=== PATIENT | female | born 1945 | race Caucasian/White ===

== ENCOUNTER 2017-12-26 12:00 | Emergency (ER) | payer MEDICARE, MEDICAID ==
[2017-12-26 12:42] LABS: PTT 26.1 SEC (22.9-36.1)
[2017-12-26 12:47] LABS: Prothrombin Time 13.6 SEC (12.0-14.7)
[2017-12-26 12:58] LABS: #Eosinphils 0.1 thou/uL (0.0-0.7); #Lymphocytes 0.4 thou/uL (1.20-3.40); #Monocytes 0.2 thou/uL (0.11-0.59); #Neutrophils 1.6 thou/uL (1.40-6.50); %Basophils 0.2 % (0.0-1.0); %Monocytes 9.9 % (0.0-10.0); %Neutrophils 70.9 % (42.0-75.0); Hemoglobin 12.3 g/dL (12.0-16.0); Mean Corpuscular HGB CONC 31.8 g/dL (32.0-36.0); Mean Corpuscular Volume 84.9 fl (81.0-99.0); PLT Morphology Comment Appears Decreased; Platelet Count 105 thou/uL (130-400); RBC Distribution Width 12.8 % (11.5-14.5); RBC Morphology Normal; Red Blood Cell (RBC) Count 4.54 mill/uL (4.20-5.40); White Blood Cell (WBC) Count 2.3 thou/uL (4.8-10.8)
[2017-12-26 13:04] LABS: ALT (SGPT) 12 U/L (8-55); AST (SGOT) 12 U/L (5-34); Albumin 4.4 g/dL (3.4-4.8); Alkaline Phosphatase 142 U/L (40-150); Anion Gap 12 mmol/L (10-20); BUN (Urea Nitrogen) 17 mg/dL (9.8-20.1); Bilirubin, Total 1.1 mg/dL (0.2-1.2); CK (CPK) 81 U/L (29-168); Calc. Creatinine Clearance 0 mL/min (70-130); Carbon Dioxide 27 mmol/L (23-31); Chloride 103 mmol/L (98-107); Estimated GFR-MDRD 47; Globulin 2.4 g/dL (2.4-3.5); Glucose 109 mg/dL (80-115); Potassium 3.4 mmol/L (3.5-5.1); Protein, Total 6.8 g/dL (6.0-8.3); Sodium 139 mmol/L (136-145)
[2017-12-26 13:05] LABS: CKMB 1.3 ng/mL (0-6.6); Troponin I Less than 0.010 ng/mL (< 0.028)
--- NOTE | 2017-12-26 13:07 | CT ---
NONCONTRAST CT HEAD: Date: 12/26/17 HISTORY: Weakness and tremors since Sunday. 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 COMPARISON: 10/19/13. FINDINGS: There are scattered areas of decreased attenuation seen in the periventricular white matter, which ar e nonspecific but likely reflective of mild chronic small vessel ischemic changes, greater in the rig ht cerebral hemisphere. These findings are stable compared to the prior exam. There is no evidence of an acute cortical infarction or hemorrhage. Area of encephalomalacia in the posterior right occipita l lobe is again present. No mass effect or midline shift is present. The ventricular system is normal in size, shape, and position. Visualized paranasal sinuses and mastoid air cells are clear. Cerebell ar tonsils remain low lying and prior MRI of the brain demonstrated evidence of Chiari I malformation . IMPRESSION: 1. No acute intracranial abnormality is demonstrated. 2. Stable encephalomalacia right occipital lobe. 3. Mild chronic small vessel ischemic changes. 4. Cerebellar tonsils remain low lying. Chiari I malformation was noted on prior MRI of the brain in 2012. POS: [facility]
--- NOTE | 2017-12-26 13:16 | RAD ---
SINGLE VIEW CHEST: Date: 12/26/17 COMPARISON: 09/12/16. HISTORY: Weakness and tremors since Sunday. Altered mental status. FINDINGS: Single view of the chest shows an enlarged but stable cardiomediastinal silhouette. Atherosclerotic c alcifications are seen in the aorta. Increased interstitial lung markings are present. There is no ev idence of consolidation, mass, or pleural effusion. IMPRESSION: 1. No evidence of acute cardiopulmonary disease. 2. Cardiomegaly. POS: [facility]
[2017-12-26 13:17] LABS: Bilirubin Negative (Negative); Blood, Urine Negative (Negative); Clarity CLEAR (Clear); Glucose, Urine (Dipstick) Negative (Negative); Leukocyte Negative (Negative); Nitrite Negative (Negative); Protein, Urine (Dipstick) Negative (Neg-Trace); Urobilinogen 0.2 mg/dL (0.2-1.0)
== END 2017-12-26 15:32 | disposition home or self-care (01) ==
LOC: ERS 12:00
DX: R25.1 Tremor, unspecified (principal); R53.1 Weakness; Z86.73 Personal history of transient ischemic attack (TIA), and cerebral infarction without residual deficits; I10 Essential (primary) hypertension; Z87.891 Personal history of nicotine dependence
CPT/HCPCS: 70450; 71045; 80053; 81003; 82550; 82553; 83605; 83880; 84443; 84484; 85025; 85610; 85730; 93005

== ENCOUNTER 2018-09-22 19:03 | Emergency (ER) | payer MEDICARE, MEDICAID | END 2018-09-22 20:28 | disposition home or self-care (01) | LOC: ERS 19:03 | DX: R25.1 Tremor, unspecified (principal); J44.9 Chronic obstructive pulmonary disease, unspecified; I10 Essential (primary) hypertension; Z87.891 Personal history of nicotine dependence; Z86.73 Personal history of transient ischemic attack (TIA), and cerebral infarction without residual deficits | CPT/HCPCS: 99283 ==

== ENCOUNTER 2018-10-04 14:47 | Emergency (ER) | payer MEDICARE, MEDICAID | END 2018-10-04 16:04 | disposition home or self-care (01) | LOC: ERS 14:47 | DX: L21.9 Seborrheic dermatitis, unspecified (principal); J44.9 Chronic obstructive pulmonary disease, unspecified; I10 Essential (primary) hypertension; Z87.891 Personal history of nicotine dependence | CPT/HCPCS: 99283 ==

== ENCOUNTER 2018-12-26 14:36 | Emergency (ER) | payer MEDICARE, MEDICAID | END 2018-12-26 15:42 | disposition home or self-care (01) | LOC: ERS 14:36 | DX: R21 Rash and other nonspecific skin eruption (principal); J44.9 Chronic obstructive pulmonary disease, unspecified; I10 Essential (primary) hypertension; Z86.73 Personal history of transient ischemic attack (TIA), and cerebral infarction without residual deficits; Z87.891 Personal history of nicotine dependence | CPT/HCPCS: 99283 ==

== ENCOUNTER 2019-10-26 06:06 | Emergency (ER) | payer MEDICARE, MEDICAID ==
[2019-10-26 06:47] LABS: #Eosinphils 0.1 thou/uL (0.0-0.7); #Lymphocytes 0.4 thou/uL (1.20-3.40); #Monocytes 0.3 thou/uL (0.11-0.59); #Neutrophils 2.4 thou/uL (1.40-6.50); %Basophils 0.5 % (0.0-1.0); %Eosinophils 2.5 % (0.0-10.0); %Monocytes 9.3 % (0.0-10.0); %Neutrophils 76.7 % (42.0-75.0); Hemoglobin 11.2 g/dL (12.0-16.0); Mean Corpuscular HGB CONC 33.7 g/dL (32.0-36.0); Mean Corpuscular Hemoglobin 27.9 pg (27.0-31.0); Mean Corpuscular Volume 82.6 fL (78.0-98.0); Mean Platelet Volume 9.8 fL (7.4-10.4); Platelet Count 76 thou/uL (130-400); Red Blood Cell (RBC) Count 4.01 mill/uL (4.20-5.40); White Blood Cell (WBC) Count 3.1 thou/uL (4.8-10.8)
[2019-10-26 07:01] LABS: ALT (SGPT) 8 U/L (8-55); AST (SGOT) 9 U/L (5-34); Albumin 3.7 g/dL (3.4-4.8); Alkaline Phosphatase 121 U/L (40-110); Anion Gap 12 mmol/L (10-20); BUN (Urea Nitrogen) 12 mg/dL (9.8-20.1); Bilirubin, Total 1.2 mg/dL (0.2-1.2); Calc. Creatinine Clearance 0 mL/min (70-130); Calcium 8.3 mg/dL (7.8-10.44); Carbon Dioxide 25 mmol/L (23-31); Chloride 108 mmol/L (98-107); Estimated GFR-MDRD 63; Globulin 2.3 g/dL (2.4-3.5); Glucose 126 mg/dL (83-110); Potassium 3.1 mmol/L (3.5-5.1); Sodium 142 mmol/L (136-145)
--- NOTE | 2019-10-26 09:19 | RAD ---
PORTABLE CHEST: HISTORY: Chest pain with deep breaths. COMPARISON: 05/08/2019 FINDINGS: The heart size is enlarged. There are atherosclerotic changes of the aorta. There are chronic lung ch anges seen. No focal infiltrates or signs of failure. IMPRESSION: Cardiomegaly with chronic appearing lung change. POS: [facility]
== END 2019-10-26 08:49 | disposition home or self-care (01) ==
LOC: ERS 06:06
DX: R07.89 Other chest pain (principal); E87.6 Hypokalemia; I10 Essential (primary) hypertension; J44.9 Chronic obstructive pulmonary disease, unspecified; Z87.891 Personal history of nicotine dependence; Z85.038 Personal history of other malignant neoplasm of large intestine; Z79.82 Long term (current) use of aspirin; Z79.899 Other long term (current) drug therapy; Z79.51 Long term (current) use of inhaled steroids
CPT/HCPCS: 36415; 71045; 80053; 83605; 84484; 85025; 93005

== ENCOUNTER 2020-02-17 06:36 | Outpatient (CLI) | payer MEDICARE, MEDICAID, OTHER ==
[2020-02-17 12:58] LABS: #Eosinphils 0.1 thou/uL (0.0-0.7); #Lymphocytes 0.5 thou/uL (1.20-3.40); #Monocytes 0.3 thou/uL (0.11-0.59); #Neutrophils 3.3 thou/uL (1.40-6.50); %Basophils 0.5 % (0.0-1.0); %Eosinophils 1.6 % (0.0-10.0); %Lymphocytes 11.3 % (21.0-51.0); %Monocytes 7.7 % (0.0-10.0); %Neutrophils 78.9 % (42.0-75.0); Hemoglobin 12.1 g/dL (12.0-16.0); Mean Corpuscular HGB CONC 32.8 g/dL (32.0-36.0); Mean Corpuscular Hemoglobin 27.3 pg (27.0-31.0); Mean Corpuscular Volume 83.4 fL (78.0-98.0); Mean Platelet Volume 9.4 fL (7.4-10.4); Platelet Count 107 thou/uL (130-400); RBC Distribution Width 15.3 % (11.5-14.5); Red Blood Cell (RBC) Count 4.42 mill/uL (4.20-5.40); White Blood Cell (WBC) Count 4.2 thou/uL (4.8-10.8)
[2020-02-17 13:17] LABS: Anion Gap 13 mmol/L (10-20); BUN (Urea Nitrogen) 35 mg/dL (9.8-20.1); Calc. Creatinine Clearance 0 mL/min (70-130); Calcium 8.9 mg/dL (7.8-10.44); Carbon Dioxide 21 mmol/L (23-31); Chloride 107 mmol/L (98-107); Estimated GFR-MDRD 35; Glucose 105 mg/dL (83-110); Potassium 4.5 mmol/L (3.5-5.1); Sodium 136 mmol/L (136-145)
--- NOTE | 2020-02-17 14:20 | RAD ---
PA AND LATERAL CHEST: Date: 02/17/2020 HISTORY: Preop. COMPARISON: 12/14/2012 study. FINDINGS: Heart size appears slightly enlarged with atherosclerotic changes of aorta. Lungs are clear of infilt rates. Compression changes of one of the mid thoracic vertebral bodies is present, age-indeterminate. IMPRESSION: Mild cardiomegaly. No active intrathoracic disease. POS: [facility]
[2020-02-17 22:21] LABS: SARS-CoV-2 MS2 Positive; SARS-CoV-2 N Gene Negative; SARS-CoV-2 S Gene Negative; SARS-CoV-2 orf1ab Negative
== END 2020-02-17 06:37 | disposition home or self-care (01) ==
LOC: LABBT 06:36
PROVIDERS: ATTEND Specialist
DX: Z01.818 Encounter for other preprocedural examination (principal); Z11.59 Encounter for screening for other viral diseases; K43.2 Incisional hernia without obstruction or gangrene; J44.9 Chronic obstructive pulmonary disease, unspecified; Z85.038 Personal history of other malignant neoplasm of large intestine
CPT/HCPCS: 71046; 80048; 85025; U0003; 87635

== ENCOUNTER 2020-02-20 09:40 | Day surgery (SDC) | payer MEDICARE, MEDICAID ==
[2020-02-17 10:31] VITALS: BMI 31.1
[2020-02-20] MEDS ORDERED: Ketorolac Tromethamine 30 MG/ML VIAL ONE (10:27)
[2020-02-20] MEDS ORDERED: Esmolol 100 MG/10 ML VIAL ONE (11:58)
[2020-02-20] MEDS ORDERED: Calcium Chloride 1 GM/10 ML Abboject SYRINGE ONE (11:58)
[2020-02-20] MEDS ORDERED: Rocuronium Bromide 10 MG/ML (10ML VIAL) ONE (11:58)
[2020-02-20] MEDS ORDERED: Ondansetron PF 4 MG/2 ML Vial ONE ×2 (11:58→15:25)
[2020-02-20] MEDS ORDERED: Lidocaine 1% PF 5 ML VIAL ONE (11:58)
[2020-02-20] MEDS ORDERED: PHENYLEPHRINE-NS 100 MCG/ML 10 ML SYRINGE ONE (11:58)
[2020-02-20] MEDS ORDERED: Dexamethasone 20 MG/5 ML VIAL ONE (11:58)
[2020-02-20] MEDS ORDERED: Acetaminophen 500 MG TAB ONE (12:14)
[2020-02-20] MEDS ORDERED: Gabapentin 300 MG CAP ONE (12:14)
[2020-02-20] MEDS ORDERED: Bupivacaine 0.25% HCL 30 ML VIAL ONE (12:19)
[2020-02-20] MEDS ORDERED: Lidocaine 1% w/Epinephrine 1:100K 20 ML VIAL ONE (12:19)
[2020-02-20] MEDS ORDERED: Phenylephrine 10 MG/ML VIAL ONE (12:21)
[2020-02-20] MEDS ORDERED: Fentanyl 100 MCG/2 ML VIAL ONE ×2 (12:21→15:20)
--- NOTE | 2020-02-20 12:30 | ULT ---
BILATERAL CAROTID DUPLEX ULTRASOUND: DATE: 02/20/2020 HISTORY: Preoperative evaluation. Patient has had a previous right carotid endarterectomy. TECHNIQUE: Martino scale ultrasound with color flow and spectral Doppler imaging of the extracranial carotid artery systems performed bilaterally. FINDINGS: There is plaque formation on both sides. The peak systolic velocity in the right ICA measures 84 cm/second with an end-diastolic velocity of 2 2 cm/second and a systolic ratio of 0.94. The peak systolic velocity in the left ICA measures 104 cm/second with an end-diastolic velocity of 1 7 cm/second and a systolic ratio of 1.2. Flow in both vertebral arteries remains antegrade. IMPRESSION: No evidence of hemodynamically significant stenosis. POS: [facility]
--- NOTE | 2020-02-20 12:39 | HP ---
ADDENDUM: Addendum to that dictated 11/13/2019. Dictation #[id number]. Amy Melendez, a 74-year-old female, seen on 11/13/2019, determined to have an incisional hernia, having undergone a laparoscopic incisional hernia repair on April 28, 2015, by me using mesh. On 10/26/2019, the patient presented to the ER with these complaints. She ambulates with the assistance of a walker. She is accompanied by her daughter previous visit. Today, she is alone. The patient has incisional hernia present in upper midline incision between the umbilicus and xiphoid and a small incisional hernia around the umbilicus. Plan is to repair these using mesh as an outpatient. The patient has seen Dr. Pb Morrison and had an echocardiogram, EKG, and cardiac catheterization. The patient in the interim has had determination of coronary artery disease treated medically, and Dr. Pb Morrison reports the patient is safe to proceed with elective robot/laparoscopic mesh repair of recurrent incisional hernia and umbilical area incisional hernia as an outpatient without further intervention. The patient denies coronary symptomatology. PAST MEDICAL HISTORY: As outlined in [facility] dictation #[id number], dictated on 11/13/2019, has not changed. MEDICATIONS: As outlined in [facility] dictation #[id number], dictated on 11/13/2019, has not changed. SURGICAL HISTORY: As outlined in [facility] dictation #[id number], dictated on 11/13/2019, has not changed. FAMILY HISTORY: As outlined in [facility] dictation #[id number], dictated on 11/13/2019, has not changed. SOCIAL HISTORY: As outlined in [facility] dictation #[id number], dictated on 11/13/2019, has not changed. REVIEW OF SYSTEMS: Have not changed. PHYSICAL EXAMINATION: VITAL SIGNS: Blood pressure 121/49, heart rate 80, temperature 98.1 degrees, followed by [facility] physicians. HEAD, EARS, EYES, NOSE, AND THROAT: Unremarkable. LUNGS: Clear to auscultation. CARDIAC: Regular rate and rhythm without murmur or gallop. ABDOMEN: Soft. Incisional hernias as previously described, umbilical area and between the umbilicus and xiphoid. EXTREMITIES: Unremarkable, ambulatory with a walker. ALLERGIES: IBUPROFEN, CODEINE, VICODIN, AND HYDROCODONE. ASSESSMENT AND PLAN: Incisional hernias. PLAN: Laparoscopic/robot mesh repair. She understands risks and benefits and consents. Job ID: [id number]
[2020-02-20] MEDS ORDERED: Promethazine HCl 25 MG/ML VIAL ONE (15:25)
--- NOTE | 2020-02-22 06:50 | OP ---
DATE OF PROCEDURE: 02/20/2020 PREOPERATIVE DIAGNOSIS: Incisional hernias x2, one located 3 to 4 cm above the umbilicus, the other about the umbilicus. POSTOPERATIVE DIAGNOSIS: Incisional hernias x2, one located 3 to 4 cm above the umbilicus, the other about the umbilicus. PROCEDURE PERFORMED: Robot repair of two incisional hernias, location described above with single mesh reinforcement of both 15 x 8 cm Ventralex . ANESTHESIA: General, local 0.5% Marcaine with epinephrine 30 mL. DESCRIPTION OF PROCEDURE: With the patient in the operating room where under general anesthesia, Narayan catheter was placed at the beginning of procedure and removed at the end. Abdomen was prepared with ChloraPrep and draped in routine fashion. Slight Trendelenburg placed and patient tilted to the right. Left lateral subcostal incision made. Pneumoperitoneum to 15 mmHg was obtained with Veress needle, replacing with an 8 mm port. Left lateral mid abdominal incision made and a 12 mm port placed in the left lower quadrant, lateral incision made, 8 mm port placed. Robot was docked and robot hernia repair undertaken. Adhesiolysis performed freeing the omental adhesions from the previously placed mesh, which was well incorporated except for one segment which was surrounded with omentum. This was dissected free with hot cautery scissors. Hemostasis obtained. Mesh freed and removed through the 12 port. Once the adhesions had been freed, the two hernia defects identified and they were closed with to and fro continuous sutures #1 V-Loc suture. Once this was accomplished with pneumoperitoneum being reduced to 8 mmHg, mesh was obtained, placed intra-abdominally, marked and secured with a portion of the #1 V-Loc suture and then continuous 2-0 V-Loc suture. Once this was secured, all needles and mesh were removed. Good hemostasis noted. No peritoneal . All skin incisions were approximated with interrupted subdermal 4-0 Monocryl and [place] glue applied. The mesh extended from below the umbilicus up towards the falciform. Job ID: [id number]
== END 2020-02-20 17:10 | disposition home or self-care (01) ==
LOC: SDC 09:40
PROVIDERS: ATTEND Specialist
PROC: 0WUF4JZ Supplement Abdominal Wall with Synthetic Substitute, Percutaneous Endoscopic Approach (ICD-10-PCS; principal; 2020-02-20)
DX: K43.2 Incisional hernia without obstruction or gangrene (principal); K66.0 Peritoneal adhesions (postprocedural) (postinfection); I10 Essential (primary) hypertension; E78.5 Hyperlipidemia, unspecified; M19.90 Unspecified osteoarthritis, unspecified site; J44.9 Chronic obstructive pulmonary disease, unspecified; I25.10 Atherosclerotic heart disease of native coronary artery without angina pectoris; I69.328 Other speech and language deficits following cerebral infarction; E78.00 Pure hypercholesterolemia, unspecified; Z87.891 Personal history of nicotine dependence; Z79.51 Long term (current) use of inhaled steroids; Z79.899 Other long term (current) drug therapy; Z88.5 Allergy status to narcotic agent; Z88.6 Allergy status to analgesic agent; Z90.49 Acquired absence of other specified parts of digestive tract
CPT/HCPCS: 93880; J0690; J1100; J1885; J2001; J2370; J2405; J2550; J3010; S0020

== ENCOUNTER 2020-06-01 13:56 | Outpatient (CLI) | payer MEDICARE, MEDICAID ==
--- NOTE | 2020-06-01 15:04 | BD ---
EXAM: Bone densitometry using DEXA HISTORY: 74 yo female. Screening for postmenopausal osteoporosis FINDINGS: L1--bone mineral density 0.711 g/sq cm; T score -2.5 ; Z score -0.5 L2--bone mineral density 0.665 g/sq cm; T score -3.3 ; Z score -1.1 L3--bone mineral density 0.630 g/sq cm; T score -4.1 ; Z score -1.8 L4--bone mineral density 0.685 g/sq cm; T score -3.4 ; Z score -1.0 Total L1-L4--bone mineral density 0.672 g/sq cm; T score -3.4 ; Z score -1.2 Left femoral neck--bone mineral density0.47; T score -3.7 ; Z score -1.8 Total proximal left femur--bone mineral density 0.466; T score -2.9 ; Z score -2.3 IMPRESSION: Osteoporosis
--- NOTE | 2020-06-01 15:51 | MMO ---
Bilateral MAMMO Bilat Screen [facility]. CLINICAL HISTORY: Patient is 74 years old and is seen for screening. The patient has no family history of breast cancer. The patient has no personal history of cancer. VIEWS: The views performed were: bilateral craniocaudal with tomosynthesis and bilateral mediolateral oblique with tomosynthesis. FILMS COMPARED: The present examination has been compared to prior imaging studies performed at [facility] on 09/26/2005 and 09/29/2005. This study has been interpreted with the assistance of computer-aided detection. MAMMOGRAM FINDINGS: There are scattered fibroglandular densities. Finding 1: There is a focal asymmetry measuring 6 millimeters seen in the sub-areolar region of the right breast. Finding 2: There is a round mass measuring 6 millimeters with microlobulated margins seen in the anterior region of the left breast at 3 o'clock. IMPRESSION: FINDING 1: FOCAL ASYMMETRY IN THE RIGHT BREAST REQUIRES ADDITIONAL EVALUATION. ADDITIONAL PROJECTIONS (LEFT MEDIOLATERAL OBLIQUE SPOT COMPRESSION; RIGHT CRANIOCAUDAL SPOT COMPRESSION; AND RIGHT MEDIOLATERAL) ARE RECOMMENDED. AN ULTRASOUND EXAM IS RECOMMENDED IF NEEDED. ADDITIONAL IMAGING. FINDING 2: MASS IN THE LEFT BREAST REQUIRES ADDITIONAL EVALUATION. ADDITIONAL PROJECTIONS (LEFT CRANIOCAUDAL SPOT COMPRESSION; LEFT MEDIOLATERAL OBLIQUE SPOT COMPRESSION; AND LEFT MEDIOLATERAL) ARE RECOMMENDED. AN ULTRASOUND EXAM IS RECOMMENDED IF NEEDED. ADDITIONAL IMAGING. THE RESULTS OF THIS EXAM WERE SENT TO THE PATIENT. ACR BI-RADS Category 0 - Incomplete: Need additional imaging evaluation. [facility] will notify the patient of the need for additional imaging services. MAMMOGRAPHY NOTE: 1. A negative mammogram report should not delay a biopsy if a dominant of clinically suspicious mass is present. 2. Approximately 10% to 15% of breast cancers are not detected by mammography. 3. Adenosis and dense breasts may obscure an underlying neoplasm. Reported by: ABRAHAN LINDSEY MD Electonically Signed: [id number]
== END 2020-06-01 13:57 | disposition home or self-care (01) ==
LOC: BICMAMMO 13:56
PROVIDERS: ATTEND Student in an Organized Health Care Education/Training Program
DX: Z12.31 Encounter for screening mammogram for malignant neoplasm of breast (principal); Z13.820 Encounter for screening for osteoporosis; N64.89 Other specified disorders of breast; N63.21 Unspecified lump in the left breast, upper outer quadrant; M81.0 Age-related osteoporosis without current pathological fracture
CPT/HCPCS: 77063; 77067; 77080

== ENCOUNTER 2020-06-09 09:31 | Outpatient (CLI) | payer MEDICARE, MEDICAID ==
--- NOTE | 2020-06-09 11:21 | MMO ---
Bilateral MAMMO Bilat Diag [facility]. CLINICAL HISTORY: Patient is 74 years old and is seen for diagnostic exam. The patient has no family history of breast cancer. The patient has no personal history of cancer. VIEWS: The views performed were: bilateral craniocaudal spot compression with tomosynthesis; bilateral mediolateral oblique spot compression with tomosynthesis; and bilateral mediolateral with tomosynthesis. FILMS COMPARED: The present examination has been compared to prior imaging studies performed at [facility] on 09/29/2005, 06/01/2020 and 06/09/2020. This study has been interpreted with the assistance of computer-aided detection. MAMMOGRAM FINDINGS: There are scattered fibroglandular densities. Finding 1: There is a focal asymmetry seen in the sub-areolar region of the right breast. Additional views were performed. Nodular retroareolar density does not completely resolve on additional views, but it does appear similar to adjacent nodular breast tissue in the inferior anterior right breast on RMLO and true lateral projections. No lesion found here on ultrasound. Finding 2: There is a lobular mass measuring 6 millimeters with circumscribed margins seen in the anterior region of the left breast at 4 o'clock. The mass is shown to have no spiculation on the additional views. Ultrasound shows an indeterminate lesion. D/W Dr. Dr. Vyas over the phone at 11:07 AM on 06/09/2020. D/w patient in person on 06/09/2020 IMPRESSION: FINDING 1: FOCAL ASYMMETRY IN THE RIGHT BREAST IS PROBABLY BENIGN. FOLLOW-UP IN 6 MONTHS IS RECOMMENDED. RECOMMEND 6 MONTH FOLLOW UP RIGHT MAMMOGRAM. FINDING 2: MASS IN THE LEFT BREAST IS SUSPICIOUS. AN ULTRASOUND-GUIDED BREAST BIOPSY IS RECOMMENDED. THE RESULTS OF THIS EXAM WERE SENT TO THE PATIENT. ACR BI-RADS Category 4 - Suspicious abnormality - biopsy should be considered MAMMOGRAPHY NOTE: 1. A negative mammogram report should not delay a biopsy if a dominant of clinically suspicious mass is present. 2. Approximately 10% to 15% of breast cancers are not detected by mammography. 3. Adenosis and dense breasts may obscure an underlying neoplasm. Reported by: MARCO ANTONIO SIFUENTES MD Electonically Signed: [id number]
--- NOTE | 2020-06-09 12:24 | ULT ---
ULTRASOUND BILATERAL BREASTS LIMITED: DATE: 06/09/2020. HISTORY: A 74-year-old female with densities in bilateral breasts on mammogram of 06/09/2020 (prior mammograms were from 2005 and 2003, were film/screen, and were destroyed). TECHNIQUE: Focused ultrasound of right retroareolar region from inferior approach. Focused ultrasound of 4 o'clock position of left breast 2 cm from the nipple. FINDINGS: In the right retroareolar region, no solid or cystic lesion is identified. No architectural distorti on, ductal ectasia, or abnormal accoustic shadowing. In the left breast at the 4 o'clock position, there is a circumscribed heterogeneously hypoechoic 0.4 x 0.3 x 0.6 cm lesion. On some of the images, there is acoustic shadowing. Margins are slightly ir regular but well circumscribd. No internal blood flow demonstrated by Doppler. There are some inter nal echoes. This lesion is indeterminate. Biopsy is recommended. Dr. Rios discussed the recommendation for biopsy with the patient immediately after the ultrasound. Dr. Rios discussed the recommendation for biopsy, and withholding of anticogulation therapy prior to t he biopsy, with Dr. Vyas at 11:07 a.m. on 06/09/2020. IMPRESSION: 1. BIRADS 4: Suspicious Abnormality - Biopsy Should Be Considered. 2. Small 0.6 cm lesion located superficially in the left lower outer quadrant at 4 o'clock position. Ultrasound-guided biopsy is recommended. 3. No ultrasound finding in the right retroareolar region. Recommend 6-month followup right mammogr am.
== END 2020-06-09 09:32 | disposition home or self-care (01) ==
LOC: BICMAMMO 09:31
PROVIDERS: ATTEND Student in an Organized Health Care Education/Training Program
DX: N63.23 Unspecified lump in the left breast, lower outer quadrant (principal); N64.89 Other specified disorders of breast
CPT/HCPCS: 76642 ×2; 77066; G0279

== ENCOUNTER → 2020-07-16 | Day surgery (SDC) | payer MEDICARE, MEDICAID ==
--- NOTE | 2020-07-16 13:52 | MMO ---
FILMS COMPARED: The present examination has been compared to prior imaging studies performed at [facility] on 06/01/2020 and 06/09/2020. MAMMOGRAM FINDINGS: There are scattered fibroglandular densities. There is a new biopsy clip seen in the left breast. IMPRESSION: NEW BIOPSY CLIP IN THE LEFT BREAST IS CONFIRMED UTILIZING POST PROCEDURE MAMMOGRAM. Reported by: MARCY HADDAD MD Electonically Signed: [id number]
--- NOTE | 2020-07-16 14:04 | ULT ---
EXAM: Ultrasound-guided left breast biopsy PROVIDED CLINICAL HISTORY: Left breast mass COMPARISON: Left breast ultrasound 06/09/2020 FINDINGS: Limited sonographic interrogation was performed of the left breast, with localization of the previous ly described mass. Informed consent was obtained from the patient. The skin overlying this region was prepped and draped in the usual sterile manner and the soft tissues anesthetized with 1% buffered lidocaine. A small skin incision was made. Continuous ultrasound guidance was utilized to obtain 4 core samples of the mass. Subsequently, continuous ultrasound guidance was utilized to place a biopsy site marker. [place] were withdrawn and hemostasis achieved. No immediate complications. IMPRESSION: Technically successful left breast biopsy. Please correlate with histology results to follow.
== END ==
LOC: BICULT 13:03
PROVIDERS: ATTEND Student in an Organized Health Care Education/Training Program
PROC: 0H9U3ZX Drainage of Left Breast, Percutaneous Approach, Diagnostic (ICD-10-PCS; principal; 2020-07-16)
DX: N63.23 Unspecified lump in the left breast, lower outer quadrant (principal); Z88.5 Allergy status to narcotic agent; Z88.6 Allergy status to analgesic agent
CPT/HCPCS: 19083; 88305; 88341; 88342

== ENCOUNTER 2021-05-25 13:26 | Outpatient (CLI) | payer MEDICARE, MEDICAID | END 2021-05-25 13:27 | disposition home or self-care (01) | LOC: BICRAD 13:26 | PROVIDERS: ATTEND Internal Medicine Critical Care Medicine | DX: R06.00 Dyspnea, unspecified (principal); I51.7 Cardiomegaly; I70.0 Atherosclerosis of aorta; R91.8 Other nonspecific abnormal finding of lung field | CPT/HCPCS: 71046 ==

== ENCOUNTER 2021-06-04 20:59 | Emergency (ER) | payer MEDICARE, MEDICAID, OTHER ==
[2021-06-04 21:24] LABS: #Eosinphils 0.3 thou/uL (0.0-0.7); #Lymphocytes 0.7 thou/uL (1.20-3.40); #Monocytes 0.4 thou/uL (0.11-0.59); #Neutrophils 4.5 thou/uL (1.40-6.50); %Basophils 0.5 % (0.0-1.0); %Eosinophils 4.8 % (0.0-10.0); %Lymphocytes 12.5 % (21.0-51.0); %Monocytes 6.4 % (0.0-10.0); %Neutrophils 75.9 % (42.0-75.0); Hemoglobin 12.7 g/dL (12.0-16.0); Mean Corpuscular HGB CONC 34.2 g/dL (32.0-36.0); Mean Corpuscular Hemoglobin 28.2 pg (27.0-31.0); Mean Corpuscular Volume 82.5 fL (78.0-98.0); Mean Platelet Volume 9.2 fL (7.4-10.4); Platelet Count 135 thou/uL (130-400); RBC Distribution Width 13.9 % (11.5-14.5); White Blood Cell (WBC) Count 5.9 thou/uL (4.8-10.8)
[2021-06-04 21:46] LABS: ALT (SGPT) 10 U/L (8-55); AST (SGOT) 16 U/L (5-34); Alkaline Phosphatase 160 U/L (40-110); Anion Gap 14 mmol/L (10-20); BUN (Urea Nitrogen) 17 mg/dL (9.8-20.1); Bilirubin, Total 0.8 mg/dL (0.2-1.2); Calc. Creatinine Clearance 0 mL/min (70-130); Calcium 8.5 mg/dL (7.8-10.44); Carbon Dioxide 22 mmol/L (23-31); Chloride 106 mmol/L (98-107); Globulin 2.4 g/dL (2.4-3.5); Glucose 135 mg/dL (83-110); Potassium 3.5 mmol/L (3.5-5.1); Protein, Total 6.4 g/dL (5.8-8.1); Sodium 138 mmol/L (136-145)
[2021-06-04 22:27] LABS: Bacteria/HPF 2+ HPF (None Seen); Bilirubin Negative (Negative); Blood, Urine Negative (Negative); Clarity Turbid (Clear); Glucose, Urine (Dipstick) Normal (Negative); Ketone, Urine Negative (Negative); Leukocyte 500 Leu/uL (Negative); Nitrite Negative (Negative); Protein, Urine (Dipstick) 20 mg/dL (Neg-Trace); Renal Epithelial 0-3 HPF (None Seen); Specific Gravity, Urine 1.018 (1.002-1.036); Urobilinogen Normal mg/dL (Less than 2); WBC/HPF Greater than 50 HPF (0-3)
== END 2021-06-04 23:00 | disposition home or self-care (01) ==
LOC: ERS 20:59
DX: S29.011A Strain of muscle and tendon of front wall of thorax, initial encounter (principal); I10 Essential (primary) hypertension; Z85.038 Personal history of other malignant neoplasm of large intestine; Z86.73 Personal history of transient ischemic attack (TIA), and cerebral infarction without residual deficits; J44.9 Chronic obstructive pulmonary disease, unspecified; Z87.891 Personal history of nicotine dependence; Z79.899 Other long term (current) drug therapy; Z79.82 Long term (current) use of aspirin; X58.XXXA Exposure to other specified factors, initial encounter
CPT/HCPCS: 36415; 80053; 81003; 81015; 83880; 84484; 85025; 93005

== ENCOUNTER 2021-06-27 08:16 | Day surgery (SDC) | payer MEDICARE, MEDICAID ==
[2021-06-27] MEDS ORDERED: Metoprolol Tartrate 5 MG/5 ML VIAL ONE (09:05)
[2021-06-27] MEDS ORDERED: Fentanyl 100 MCG/2 ML VIAL ONE (09:37)
[2021-06-27] MEDS ORDERED: PHENYLEPHRINE-NS 100 MCG/ML 10 ML SYRINGE ONE ×2 (09:37→10:07)
[2021-06-27] MEDS ORDERED: Dexamethasone 20 MG/5 ML VIAL ONE (10:07)
[2021-06-27] MEDS ORDERED: PROPOFOL 200 MG/20 ML VIAL ONE (10:07)
[2021-06-27] MEDS ORDERED: Rocuronium Bromide 10 MG/ML (10ML VIAL) ONE (10:07)
[2021-06-27] MEDS ORDERED: Ondansetron PF 4 MG/2 ML Vial ONE (10:07)
[2021-06-27] MEDS ORDERED: Lidocaine 1% PF 5 ML VIAL ONE (10:07)
[2021-06-27] MEDS ORDERED: Glycopyrrolate 0.2 MG/ML 5 ML SYRINGE ONE (10:07)
== END 2021-06-27 13:05 | disposition home or self-care (01) ==
LOC: SDC 08:16
PROVIDERS: ATTEND Internal Medicine Critical Care Medicine
PROC: 0BB68ZX Excision of Right Lower Lobe Bronchus, Via Natural or Artificial Opening Endoscopic, Diagnostic (ICD-10-PCS; principal; 2021-06-27)
PROC: 0BD68ZX Extraction of Right Lower Lobe Bronchus, Via Natural or Artificial Opening Endoscopic, Diagnostic (ICD-10-PCS; 2021-06-27)
PROC: 0BDD8ZX Extraction of Right Middle Lung Lobe, Via Natural or Artificial Opening Endoscopic, Diagnostic (ICD-10-PCS; 2021-06-27)
PROC: 0BBF8ZX Excision of Right Lower Lung Lobe, Via Natural or Artificial Opening Endoscopic, Diagnostic (ICD-10-PCS; 2021-06-27)
PROC: 0BBD8ZX Excision of Right Middle Lung Lobe, Via Natural or Artificial Opening Endoscopic, Diagnostic (ICD-10-PCS; 2021-06-27)
DX: C7A.1 Malignant poorly differentiated neuroendocrine tumors (principal); J44.9 Chronic obstructive pulmonary disease, unspecified; I10 Essential (primary) hypertension; Z85.038 Personal history of other malignant neoplasm of large intestine; Z86.73 Personal history of transient ischemic attack (TIA), and cerebral infarction without residual deficits; Z87.891 Personal history of nicotine dependence; Z79.82 Long term (current) use of aspirin; Z79.899 Other long term (current) drug therapy; Z88.5 Allergy status to narcotic agent; Z88.6 Allergy status to analgesic agent; Z90.49 Acquired absence of other specified parts of digestive tract
CPT/HCPCS: 88112; 88305; 88341; 88342; J1100; J2405; J2704; J3010

== ENCOUNTER 2021-07-04 08:20 | Inpatient (IN) | payer MEDICARE, MEDICAID ==
[2021-07-04 10:00] LABS: #Eosinphils 0.1 thou/uL (0.0-0.7); #Lymphocytes 0.5 thou/uL (1.20-3.40); #Monocytes 0.5 thou/uL (0.11-0.59); #Neutrophils 5.1 thou/uL (1.40-6.50); %Eosinophils 1.2 % (0.0-10.0); %Lymphocytes 8.8 % (21.0-51.0); %Monocytes 7.7 % (0.0-10.0); %Neutrophils 82.2 % (42.0-75.0); Hemoglobin 11.8 g/dL (12.0-16.0); Mean Corpuscular HGB CONC 33.3 g/dL (32.0-36.0); Mean Corpuscular Hemoglobin 27.8 pg (27.0-31.0); Mean Corpuscular Volume 83.4 fL (78.0-98.0); Platelet Count 131 thou/uL (130-400); RBC Distribution Width 14.3 % (11.5-14.5); Red Blood Cell (RBC) Count 4.26 mill/uL (4.20-5.40); White Blood Cell (WBC) Count 6.2 thou/uL (4.8-10.8)
[2021-07-04 10:29] LABS: ALT (SGPT) 54 U/L (8-55); AST (SGOT) 71 U/L (5-34); Albumin 3.4 g/dL (3.4-4.8); Alkaline Phosphatase 339 U/L (40-110); Anion Gap 17 mmol/L (10-20); BUN (Urea Nitrogen) 33 mg/dL (9.8-20.1); Bilirubin, Total 0.7 mg/dL (0.2-1.2); Calc. Creatinine Clearance 0 mL/min (70-130); Carbon Dioxide 24 mmol/L (23-31); Chloride 99 mmol/L (98-107); Globulin 2.2 g/dL (2.4-3.5); Glucose 112 mg/dL (83-110); Potassium 3.4 mmol/L (3.5-5.1); Protein, Total 5.6 g/dL (5.8-8.1); Sodium 137 mmol/L (136-145)
[2021-07-04 10:43] LABS: CKMB 2.3 ng/mL (0-6.6)
[2021-07-04] MEDS ORDERED: Aspirin 325 MG TAB ONE (10:43)
[2021-07-04] MEDS ORDERED: traMADol HCl 50 MG TAB ONE (11:31)
[2021-07-04] MEDS ORDERED: Ondansetron PF 4 MG/2 ML Vial IVP PRN (14:38)
[2021-07-04] MEDS ORDERED: Senokot S 8.6-50 MG TAB PO PRN (14:38)
[2021-07-04] MEDS ORDERED: Ondansetron ODT 4 MG TAB PO PRN (14:38)
[2021-07-04] MEDS ORDERED: Acetaminophen 650 MG Suppository PR PRN (14:38)
[2021-07-04 14:46] LABS: Troponin I 0.043 ng/mL (< 0.028)
[2021-07-04] MEDS ORDERED: Furosemide 100 MG/10 ML VIAL SLOW IVP SCH (15:00)
[2021-07-04] MEDS ORDERED: Furosemide 40 MG/4 ML VIAL SLOW IVP SCH (16:15)
[2021-07-04] MEDS: Lactated Ringer's 1,000 ML IV SCH (17:32)
[2021-07-04 17:57] LABS: Troponin I 0.038 ng/mL (< 0.028)
[2021-07-04 18:24] LABS: Creatinine, Urine 111.69 mg/dL (47-110)
[2021-07-04] MEDS: Acetaminophen 325 MG TAB PO PRN (20:26)
[2021-07-04] MEDS: Rosuvastatin 10 MG TAB PO SCH (20:26)
[2021-07-04] MEDS: Aggrenox 200-25mg CAP PO SCH (20:28)
[2021-07-04] MEDS ORDERED: Metoprolol Tartrate 25 MG TAB PO SCH (21:00)
[2021-07-04 21:32] LABS: SARS-CoV-2 PCR by NAA Not Detected (NotDetected)
[2021-07-04] MEDS ORDERED: Lidocaine 5% Patch TD SCH (22:00)
[2021-07-04] MEDS ORDERED: Albuterol 200 PUFF (6.7GM INHALER) INH PRN (22:30)
[2021-07-05] MEDS: Lactated Ringer's 1,000 ML IV SCH ×4 (02:00→16:07)
[2021-07-05 05:05] LABS: #Lymphocytes 0.5 thou/uL (1.20-3.40); #Monocytes 0.4 thou/uL (0.11-0.59); #Neutrophils 4.5 thou/uL (1.40-6.50); %Basophils 0.4 % (0.0-1.0); %Eosinophils 0.5 % (0.0-10.0); %Lymphocytes 9.1 % (21.0-51.0); %Monocytes 7.5 % (0.0-10.0); %Neutrophils 82.6 % (42.0-75.0); Hemoglobin 11.9 g/dL (12.0-16.0); Mean Corpuscular HGB CONC 33.7 g/dL (32.0-36.0); Mean Corpuscular Hemoglobin 28.2 pg (27.0-31.0); Mean Corpuscular Volume 83.6 fL (78.0-98.0); Mean Platelet Volume 10.3 fL (7.4-10.4); Platelet Count 107 thou/uL (130-400); RBC Distribution Width 14.3 % (11.5-14.5); Red Blood Cell (RBC) Count 4.22 mill/uL (4.20-5.40); White Blood Cell (WBC) Count 5.4 thou/uL (4.8-10.8)
[2021-07-05 05:24] LABS: ALT (SGPT) 52 U/L (8-55); AST (SGOT) 72 U/L (5-34); Albumin 3.3 g/dL (3.4-4.8); Alkaline Phosphatase 352 U/L (40-110); Anion Gap 21 mmol/L (10-20); BUN (Urea Nitrogen) 35 mg/dL (9.8-20.1); Bilirubin, Total 0.7 mg/dL (0.2-1.2); Calc. Creatinine Clearance 43 mL/min (70-130); Calcium 8.9 mg/dL (7.8-10.44); Carbon Dioxide 22 mmol/L (23-31); Chloride 98 mmol/L (98-107); Globulin 2.2 g/dL (2.4-3.5); Glucose 95 mg/dL (83-110); Potassium 3.7 mmol/L (3.5-5.1); Protein, Total 5.5 g/dL (5.8-8.1); Sodium 137 mmol/L (136-145)
[2021-07-05] MEDS: Loratadine 10 MG TAB PO PRN (06:24)
[2021-07-05] MEDS: Mometasone 200 MCG/Formoterol 5 MCG 120 PUFF INHALER INH SCH ×2 (08:01→19:04)
[2021-07-05] MEDS ORDERED: Metoprolol Tartrate 25 MG TAB PO SCH ×2 (09:00→21:00)
[2021-07-05] MEDS ORDERED: NIFEdipine XL 90 MG TAB PO SCH (09:00)
[2021-07-05] MEDS: Primidone 50 MG TAB PO SCH (09:19)
[2021-07-05] MEDS: Aggrenox 200-25mg CAP PO SCH ×2 (09:19→21:04)
[2021-07-05] MEDS: Enoxaparin Sodium 40 MG/0.4 ML SYRINGE SC SCH (09:25)
[2021-07-05] MEDS: NIFEdipine XL 60 MG TAB PO SCH (09:32)
[2021-07-05] MEDS: Acetaminophen 325 MG TAB PO PRN ×2 (09:36→20:58)
[2021-07-05] MEDS ORDERED: Transdermal Patch Removal TOP SCH (10:00)
[2021-07-05] MEDS ORDERED: Sodium Chloride 0.9% 500 ML IV SCH (11:00)
[2021-07-05] MEDS ORDERED: predniSONE 20 MG TAB PO SCH (11:00)
[2021-07-05] MEDS ORDERED: Albuterol Sulfate 2.5 mg/3 ml Neb NEB SCH ×2 (11:00→18:30)
[2021-07-05] MEDS ORDERED: methylPREDNISolone 4 mg Tablet PO SCH (14:30)
[2021-07-05] MEDS ORDERED: Lactated Ringer's 1,000 ML IV SCH (18:29)
[2021-07-05] MEDS ORDERED: Furosemide 20 MG/2 ML VIAL SLOW IVP SCH (18:30)
[2021-07-05] MEDS: Rosuvastatin 10 MG TAB PO SCH (20:58)
[2021-07-06 06:03] LABS: #Lymphocytes 0.4 thou/uL (1.20-3.40); #Monocytes 0.5 thou/uL (0.11-0.59); #Neutrophils 7.7 thou/uL (1.40-6.50); %Basophils 0.2 % (0.0-1.0); %Eosinophils 0.5 % (0.0-10.0); %Lymphocytes 4.9 % (21.0-51.0); %Neutrophils 88.4 % (42.0-75.0); Hemoglobin 12.7 g/dL (12.0-16.0); Mean Corpuscular HGB CONC 34.2 g/dL (32.0-36.0); Mean Corpuscular Hemoglobin 28.4 pg (27.0-31.0); Mean Corpuscular Volume 83.2 fL (78.0-98.0); Mean Platelet Volume 10.5 fL (7.4-10.4); Platelet Count 144 thou/uL (130-400); RBC Distribution Width 14.3 % (11.5-14.5); Red Blood Cell (RBC) Count 4.48 mill/uL (4.20-5.40); White Blood Cell (WBC) Count 8.8 thou/uL (4.8-10.8)
[2021-07-06 06:24] LABS: ALT (SGPT) 54 U/L (8-55); AST (SGOT) 71 U/L (5-34); Albumin 3.4 g/dL (3.4-4.8); Alkaline Phosphatase 385 U/L (40-110); Anion Gap 21 mmol/L (10-20); BUN (Urea Nitrogen) 37 mg/dL (9.8-20.1); Bilirubin, Total 0.7 mg/dL (0.2-1.2); Calc. Creatinine Clearance 49 mL/min (70-130); Calcium 9.2 mg/dL (7.8-10.44); Carbon Dioxide 21 mmol/L (23-31); Chloride 97 mmol/L (98-107); Globulin 2.3 g/dL (2.4-3.5); Glucose 101 mg/dL (83-110); Protein, Total 5.7 g/dL (5.8-8.1); Sodium 135 mmol/L (136-145)
[2021-07-06] MEDS: Mometasone 200 MCG/Formoterol 5 MCG 120 PUFF INHALER INH SCH ×2 (07:24→18:33)
[2021-07-06] MEDS: Acetaminophen 325 MG TAB PO PRN ×3 (07:33→19:38)
[2021-07-06] MEDS ORDERED: predniSONE 20 MG TAB PO SCH (08:00)
[2021-07-06] MEDS ORDERED: methylPREDNISolone 4 mg Tablet PO SCH ×2 (09:00→10:15)
[2021-07-06] MEDS ORDERED: Furosemide 40 MG TAB PO SCH (09:15)
[2021-07-06] MEDS: NIFEdipine XL 60 MG TAB PO SCH (09:34)
[2021-07-06] MEDS: Aggrenox 200-25mg CAP PO SCH ×2 (09:45→20:25)
[2021-07-06] MEDS: Loratadine 10 MG TAB PO PRN (09:46)
[2021-07-06] MEDS: NIFEdipine XL 30 MG TAB PO SCH (09:46)
[2021-07-06] MEDS: Enoxaparin Sodium 40 MG/0.4 ML SYRINGE SC SCH (09:46)
[2021-07-06] MEDS: Primidone 50 MG TAB PO SCH (09:46)
[2021-07-06] MEDS ORDERED: Diltiazem 125 MG in Sodium Chloride 0.9% 100 ML IVPB SCH (17:15)
[2021-07-06] MEDS: Rosuvastatin 10 MG TAB PO SCH (20:25)
[2021-07-06] MEDS: GUAIFENESIN SF SOLN 200 MG/10 ML UDCUP PO PRN (21:20)
[2021-07-07 05:09] LABS: ALT (SGPT) 42 U/L (8-55); AST (SGOT) 52 U/L (5-34); Albumin 3.2 g/dL (3.4-4.8); Alkaline Phosphatase 348 U/L (40-110); Anion Gap 19 mmol/L (10-20); BUN (Urea Nitrogen) 41 mg/dL (9.8-20.1); Bilirubin, Total 0.8 mg/dL (0.2-1.2); Calc. Creatinine Clearance 45 mL/min (70-130); Calcium 9.4 mg/dL (7.8-10.44); Carbon Dioxide 22 mmol/L (23-31); Chloride 98 mmol/L (98-107); Globulin 2.4 g/dL (2.4-3.5); Glucose 135 mg/dL (83-110); Potassium 3.9 mmol/L (3.5-5.1); Protein, Total 5.6 g/dL (5.8-8.1); Sodium 135 mmol/L (136-145)
[2021-07-07 06:49] LABS: Band 10 % (5-11); Lymphocytes 4 % (21-51); MDiff Complete? YES; Mean Corpuscular HGB CONC 32.9 g/dL (32.0-36.0); Mean Corpuscular Hemoglobin 27.1 pg (27.0-31.0); Mean Corpuscular Volume 82.3 fL (78.0-98.0); Mean Platelet Volume 10.5 fL (7.4-10.4); Monocytes 5 % (0-10); Neutrophil 80 % (42-75); Platelet Clumps SLIGHT; Platelet Count 118 thou/uL (130-400); RBC Distribution Width 14.5 % (11.5-14.5); RBC Morphology Normal; Reactive Lymphocytes 1 % (0-10); Red Blood Cell (RBC) Count 4.45 mill/uL (4.20-5.40); White Blood Cell (WBC) Count 9.4 thou/uL (4.8-10.8)
[2021-07-07] MEDS: Mometasone 200 MCG/Formoterol 5 MCG 120 PUFF INHALER INH SCH ×2 (07:06→18:16)
[2021-07-07] MEDS ORDERED: Furosemide 40 MG TAB PO SCH (07:30)
[2021-07-07] MEDS ORDERED: methylPREDNISolone 4 mg Tablet PO SCH (09:00)
[2021-07-07] MEDS: NIFEdipine XL 30 MG TAB PO SCH (09:12)
[2021-07-07] MEDS: Aggrenox 200-25mg CAP PO SCH ×2 (09:12→20:20)
[2021-07-07] MEDS: Potassium Chloride 10 MEQ TAB PO SCH (09:13)
[2021-07-07] MEDS: Primidone 50 MG TAB PO SCH (09:14)
[2021-07-07] MEDS: Enoxaparin Sodium 40 MG/0.4 ML SYRINGE SC SCH (09:14)
[2021-07-07] MEDS: Loratadine 10 MG TAB PO PRN (10:20)
[2021-07-07] MEDS: Acetaminophen 325 MG TAB PO PRN (16:41)
[2021-07-07] MEDS: GUAIFENESIN SF SOLN 200 MG/10 ML UDCUP PO PRN (16:42)
[2021-07-07] MEDS ORDERED: FLU VACC QS2021-22(65YR UP)/PF 240 MCG/0.7 ML SYRINGE IM ONE (17:30)
[2021-07-07] MEDS: Rosuvastatin 10 MG TAB PO SCH (20:20)
[2021-07-08] MEDS: Acetaminophen 325 MG TAB PO PRN ×2 (03:39→09:51)
[2021-07-08 05:32] LABS: #Lymphocytes 0.4 thou/uL (1.20-3.40); #Monocytes 0.6 thou/uL (0.11-0.59); %Eosinophils 0.2 % (0.0-10.0); %Lymphocytes 3.5 % (21.0-51.0); %Monocytes 5.6 % (0.0-10.0); %Neutrophils 90.7 % (42.0-75.0); Hemoglobin 12.8 g/dL (12.0-16.0); Mean Corpuscular HGB CONC 33.1 g/dL (32.0-36.0); Mean Corpuscular Hemoglobin 27.8 pg (27.0-31.0); Mean Corpuscular Volume 83.8 fL (78.0-98.0); Platelet Count 162 thou/uL (130-400); RBC Distribution Width 14.6 % (11.5-14.5); Red Blood Cell (RBC) Count 4.61 mill/uL (4.20-5.40)
[2021-07-08 05:51] LABS: ALT (SGPT) 43 U/L (8-55); AST (SGOT) 47 U/L (5-34); Albumin 3.4 g/dL (3.4-4.8); Alkaline Phosphatase 366 U/L (40-110); Anion Gap 21 mmol/L (10-20); BUN (Urea Nitrogen) 46 mg/dL (9.8-20.1); Bilirubin, Total 0.7 mg/dL (0.2-1.2); Calc. Creatinine Clearance 46 mL/min (70-130); Calcium 9.4 mg/dL (7.8-10.44); Carbon Dioxide 19 mmol/L (23-31); Chloride 97 mmol/L (98-107); Globulin 2.3 g/dL (2.4-3.5); Glucose 126 mg/dL (83-110); Potassium 3.9 mmol/L (3.5-5.1); Protein, Total 5.7 g/dL (5.8-8.1); Sodium 133 mmol/L (136-145)
[2021-07-08] MEDS: Mometasone 200 MCG/Formoterol 5 MCG 120 PUFF INHALER INH SCH ×2 (08:11→18:33)
[2021-07-08] MEDS: Furosemide 40 MG/4 ML VIAL SLOW IVP SCH (09:20)
[2021-07-08 09:39] LABS: Base Excess (BEa) -1.2 mEq/L (-2.0 to +3.0); CO2 Tension 47.6 mmHg (35.0-45.0); Calcium, Ionized (arterial) 1.22 mmol/L (1.12-1.30); Carboxyhemoglobin (COHb) 0.7 gm% (0.0-3.0); Hemoglobin (Hb) 13.4 g/dL (12.0-16.0); O2 Tension (PaO2), arterial 68.3 mmHg (> 70.0); Potassium - ABG Lab 3.74 mmol/L (3.70-5.30); pH, Arterial 7.34 (7.35-7.45)
[2021-07-08 09:40] LABS: Puncture Site LBA
[2021-07-08] MEDS: Potassium Chloride 10 MEQ TAB PO SCH (09:51)
[2021-07-08] MEDS: NIFEdipine XL 30 MG TAB PO SCH (09:52)
[2021-07-08] MEDS: Aggrenox 200-25mg CAP PO SCH ×2 (09:52→20:11)
[2021-07-08] MEDS: Primidone 50 MG TAB PO SCH (09:52)
[2021-07-08] MEDS: Enoxaparin Sodium 40 MG/0.4 ML SYRINGE SC SCH (09:52)
[2021-07-08] MEDS ORDERED: Midazolam HCl 2 mg/2 ml Vial ONE (12:15)
[2021-07-08] MEDS ORDERED: PALONOSETRON HCL 0.05 MG/ML 5 ML VIAL IVP SCH (14:00)
[2021-07-08] MEDS ORDERED: Fentanyl CADD 100 ML ONE (14:02)
[2021-07-08 14:07] LABS: Base Excess (BEa) -2.7 mEq/L (-2.0 to +3.0); Calcium, Ionized (arterial) 1.23 mmol/L (1.12-1.30); Carboxyhemoglobin (COHb) 0.1 gm% (0.0-3.0); O2 Tension (PaO2), arterial 289.2 mmHg (> 70.0)
[2021-07-08] MEDS ORDERED: CARBOPLATIN IVPB SCH (14:15)
[2021-07-08] MEDS ORDERED: SODIUM CHLORIDE 0.9% IVPB SCH (14:15)
[2021-07-08] MEDS ORDERED: Propofol 1,000 MG/100 ML VIAL IV PRN (14:45)
[2021-07-08] MEDS ORDERED: Morphine 2 MG/ML VIAL SLOW IVP PRN (14:45)
[2021-07-08] MEDS ORDERED: Fentanyl BOLUS 250 ML IVPB PRN (14:45)
[2021-07-08] MEDS ORDERED: Propofol BOLUS 1,000 MG/100 ML VIAL IV PRN (14:45)
[2021-07-08] MEDS ORDERED: DISCONTINUE PREVIOUS NARCOTIC PAIN MEDICATIONS AND BENZODIAZEPINES FS SCH (14:45)
[2021-07-08] MEDS: Rosuvastatin 10 MG TAB PO SCH (20:11)
[2021-07-09] MEDS: Amiodarone 450 MG, Admixture Fee 1 EACH in Dextrose 5% in Water 250 ML IVPB SCH ×2 (02:04→09:12)
[2021-07-09 04:45] LABS: #Lymphocytes 0.3 thou/uL (1.20-3.40); #Monocytes 0.6 thou/uL (0.11-0.59); #Neutrophils 10.8 thou/uL (1.40-6.50); %Eosinophils 0.1 % (0.0-10.0); %Lymphocytes 2.2 % (21.0-51.0); %Monocytes 5.2 % (0.0-10.0); %Neutrophils 92.4 % (42.0-75.0); Hemoglobin 11.6 g/dL (12.0-16.0); Mean Corpuscular HGB CONC 34.1 g/dL (32.0-36.0); Mean Corpuscular Hemoglobin 28.5 pg (27.0-31.0); Mean Corpuscular Volume 83.6 fL (78.0-98.0); Mean Platelet Volume 9.5 fL (7.4-10.4); Platelet Count 202 thou/uL (130-400); RBC Distribution Width 14.6 % (11.5-14.5); Red Blood Cell (RBC) Count 4.07 mill/uL (4.20-5.40); White Blood Cell (WBC) Count 11.7 thou/uL (4.8-10.8)
[2021-07-09] MEDS: Diltiazem 125 MG in Sodium Chloride 0.9% 100 ML IVPB SCH ×2 (05:50→23:01)
[2021-07-09] MEDS: Lorazepam 2 MG/ML VIAL SLOW IVP PRN (05:54)
[2021-07-09 06:02] LABS: ALT (SGPT) 40 U/L (8-55); AST (SGOT) 69 U/L (5-34); Albumin 2.9 g/dL (3.4-4.8); Alkaline Phosphatase 327 U/L (40-110); Anion Gap 24 mmol/L (10-20); BUN (Urea Nitrogen) 61 mg/dL (9.8-20.1); Bilirubin, Total 0.5 mg/dL (0.2-1.2); Calc. Creatinine Clearance 31 mL/min (70-130); Calcium 8.8 mg/dL (7.8-10.44); Carbon Dioxide 18 mmol/L (23-31); Chloride 99 mmol/L (98-107); Globulin 2.7 g/dL (2.4-3.5); Glucose 108 mg/dL (83-110); Potassium 5.1 mmol/L (3.5-5.1); Protein, Total 5.6 g/dL (5.8-8.1); Sodium 136 mmol/L (136-145)
[2021-07-09] MEDS: Mometasone 200 MCG/Formoterol 5 MCG 120 PUFF INHALER INH SCH ×2 (07:26→18:50)
[2021-07-09] MEDS ORDERED: Fentanyl CADD 100 ML ONE (07:48)
[2021-07-09] MEDS: Pantoprazole 40 MG VIAL IVP SCH ×2 (07:53→07:57)
[2021-07-09] MEDS: NIFEdipine XL 30 MG TAB PO SCH ×2 (07:54→08:04)
[2021-07-09] MEDS: Furosemide 40 MG/4 ML VIAL SLOW IVP SCH (07:54)
[2021-07-09] MEDS: Enoxaparin Sodium 40 MG/0.4 ML SYRINGE SC SCH ×2 (07:54→09:28)
[2021-07-09] MEDS: Fentanyl CADD 100 ML IV SCH (07:54)
[2021-07-09] MEDS: Aggrenox 200-25mg CAP PO SCH ×2 (07:54→20:38)
[2021-07-09] MEDS: Potassium Chloride 10 MEQ TAB PO SCH (07:54)
[2021-07-09] MEDS ORDERED: Albumin 25% 25 GM/100 ML BOT IVPB SCH (08:45)
[2021-07-09] MEDS: Primidone 50 MG TAB PO SCH (10:12)
[2021-07-09] MEDS ORDERED: Sodium Chloride 0.9% 500 ML IV SCH (13:30)
[2021-07-09] MEDS ORDERED: Digoxin 0.5 MG/2 ML AMP SLOW IVP SCH (13:30)
[2021-07-09] MEDS: Rosuvastatin 10 MG TAB PO SCH (20:38)
[2021-07-09] MEDS: Acetaminophen 325 MG TAB PO PRN (20:39)
[2021-07-10 04:20] LABS: Hemoglobin 10.5 g/dL (12.0-16.0); Mean Corpuscular HGB CONC 33.1 g/dL (32.0-36.0); Mean Corpuscular Hemoglobin 28.1 pg (27.0-31.0); Mean Corpuscular Volume 84.8 fL (78.0-98.0); Mean Platelet Volume 8.8 fL (7.4-10.4); Platelet Count 184 thou/uL (130-400); RBC Distribution Width 14.7 % (11.5-14.5); Red Blood Cell (RBC) Count 3.73 mill/uL (4.20-5.40); White Blood Cell (WBC) Count 10.2 thou/uL (4.8-10.8)
[2021-07-10 04:34] LABS: ALT (SGPT) 31 U/L (8-55); AST (SGOT) 54 U/L (5-34); Alkaline Phosphatase 274 U/L (40-110); Anion Gap 19 mmol/L (10-20); BUN (Urea Nitrogen) 89 mg/dL (9.8-20.1); Bilirubin, Total 0.5 mg/dL (0.2-1.2); Calc. Creatinine Clearance 24 mL/min (70-130); Calcium 8.1 mg/dL (7.8-10.44); Carbon Dioxide 20 mmol/L (23-31); Chloride 99 mmol/L (98-107); Globulin 1.9 g/dL (2.4-3.5); Glucose 99 mg/dL (83-110); Potassium 5.1 mmol/L (3.5-5.1); Protein, Total 4.9 g/dL (5.8-8.1); Sodium 133 mmol/L (136-145)
[2021-07-10 05:51] LABS: Band 12 % (5-11); Lymphocytes 10 % (21-51); MDiff Complete? YES; Metamyelocyte 1 % (0-0); Monocytes 1 % (0-10); Neutrophil 76 % (42-75)
[2021-07-10] MEDS: NIFEdipine XL 30 MG TAB PO SCH (07:14)
[2021-07-10] MEDS: Aggrenox 200-25mg CAP PO SCH ×2 (07:14→21:13)
[2021-07-10] MEDS: Enoxaparin Sodium 40 MG/0.4 ML SYRINGE SC SCH ×2 (07:14→10:25)
[2021-07-10] MEDS: Furosemide 40 MG/4 ML VIAL SLOW IVP SCH (07:14)
[2021-07-10] MEDS: Potassium Chloride 10 MEQ TAB PO SCH (07:16)
[2021-07-10] MEDS: Pantoprazole 40 MG VIAL IVP SCH (07:16)
[2021-07-10] MEDS: Primidone 50 MG TAB PO SCH (07:17)
[2021-07-10] MEDS: Mometasone 200 MCG/Formoterol 5 MCG 120 PUFF INHALER INH SCH ×2 (07:22→18:48)
[2021-07-10] MEDS ORDERED: Fentanyl CADD 100 ML ONE (09:45)
[2021-07-10] MEDS: Fentanyl CADD 100 ML IV SCH (09:51)
[2021-07-10] MEDS: Sodium Chloride 0.9% 1,000 ML IV SCH ×2 (10:23→23:46)
[2021-07-10] MEDS: Amiodarone 450 MG, Admixture Fee 1 EACH in Dextrose 5% in Water 250 ML IVPB SCH (11:53)
[2021-07-10] MEDS: Lorazepam 2 MG/ML VIAL SLOW IVP PRN (16:03)
[2021-07-10] MEDS: Rosuvastatin 10 MG TAB PO SCH (21:13)
[2021-07-11] MEDS: Diltiazem 125 MG in Sodium Chloride 0.9% 100 ML IVPB SCH ×2 (00:44→22:08)
[2021-07-11] MEDS: Amiodarone 450 MG, Admixture Fee 1 EACH in Dextrose 5% in Water 250 ML IVPB SCH (01:02)
[2021-07-11 04:42] LABS: Hemoglobin 9.2 g/dL (12.0-16.0); Mean Corpuscular HGB CONC 33.1 g/dL (32.0-36.0); Mean Corpuscular Volume 84.4 fL (78.0-98.0); Mean Platelet Volume 8.9 fL (7.4-10.4); Platelet Count 139 thou/uL (130-400); RBC Distribution Width 14.7 % (11.5-14.5); Red Blood Cell (RBC) Count 3.29 mill/uL (4.20-5.40); White Blood Cell (WBC) Count 6.3 thou/uL (4.8-10.8)
[2021-07-11 05:01] LABS: ALT (SGPT) 22 U/L (8-55); AST (SGOT) 47 U/L (5-34); Albumin 2.4 g/dL (3.4-4.8); Alkaline Phosphatase 246 U/L (40-110); Anion Gap 20 mmol/L (10-20); BUN (Urea Nitrogen) 107 mg/dL (9.8-20.1); Bilirubin, Total 0.3 mg/dL (0.2-1.2); Calc. Creatinine Clearance 22 mL/min (70-130); Calcium 7.3 mg/dL (7.8-10.44); Carbon Dioxide 18 mmol/L (23-31); Chloride 102 mmol/L (98-107); Glucose 110 mg/dL (83-110); Potassium 5.6 mmol/L (3.5-5.1); Protein, Total 4.4 g/dL (5.8-8.1); Sodium 134 mmol/L (136-145)
[2021-07-11 05:39] LABS: Band 7 % (5-11); Lymphocytes 3 % (21-51); MDiff Complete? YES; Neutrophil 89 % (42-75)
[2021-07-11] MEDS: Mometasone 200 MCG/Formoterol 5 MCG 120 PUFF INHALER INH SCH ×2 (06:35→18:04)
[2021-07-11] MEDS: Aggrenox 200-25mg CAP PO SCH ×2 (07:15→21:36)
[2021-07-11] MEDS: Enoxaparin Sodium 40 MG/0.4 ML SYRINGE SC SCH (07:16)
[2021-07-11] MEDS: Pantoprazole 40 MG VIAL IVP SCH (07:16)
[2021-07-11] MEDS: Lorazepam 2 MG/ML VIAL SLOW IVP PRN ×2 (07:16→12:00)
[2021-07-11] MEDS: NIFEdipine XL 30 MG TAB PO SCH (07:17)
[2021-07-11] MEDS: Primidone 50 MG TAB PO SCH (07:17)
[2021-07-11 07:28] LABS: Actual Bicarbonate (HCO3a) 16.7 mEq/L (22-28); Base Excess (BEa) -9.8 mEq/L (-2.0 to +3.0); CO2 Tension 39.1 mmHg (35.0-45.0); Calcium, Ionized (arterial) 1.05 mmol/L (1.12-1.30); Carboxyhemoglobin (COHb) 0.6 gm% (0.0-3.0); Hemoglobin (Hb) 9.1 g/dL (12.0-16.0); O2 Tension (PaO2), arterial 84.8 mmHg (> 70.0); Potassium - ABG Lab 5.39 mmol/L (3.70-5.30)
[2021-07-11] MEDS ORDERED: Midazolam HCl 2 mg/2 ml Vial SLOW IVP SCH ×2 (07:45→15:30)
[2021-07-11 07:48] LABS: ALV-art Gradient 151.525 mmHg (0-20); Puncture Site RRA; pH, Arterial 7.25 (7.35-7.45)
[2021-07-11] MEDS ORDERED: Sodium Bicarbonate 150 MEQ in Dextrose 5% in Water 1,000 ML IV SCH (12:00)
[2021-07-11] MEDS ORDERED: PEGFILGRASTIM-JMDB 6 MG/0.6 ML SYRINGE SQ SCH (15:30)
[2021-07-11] MEDS: Rosuvastatin 10 MG TAB PO SCH (21:36)
[2021-07-12 04:22] LABS: ALT (SGPT) 20 U/L (8-55); AST (SGOT) 42 U/L (5-34); Albumin 2.6 g/dL (3.4-4.8); Alkaline Phosphatase 269 U/L (40-110); Anion Gap 21 mmol/L (10-20); BUN (Urea Nitrogen) 121 mg/dL (9.8-20.1); Bilirubin, Total 0.3 mg/dL (0.2-1.2); Calc. Creatinine Clearance 20 mL/min (70-130); Calcium 7.3 mg/dL (7.8-10.44); Carbon Dioxide 20 mmol/L (23-31); Chloride 99 mmol/L (98-107); Globulin 2.1 g/dL (2.4-3.5); Glucose 128 mg/dL (83-110); Potassium 5.9 mmol/L (3.5-5.1); Protein, Total 4.7 g/dL (5.8-8.1); Sodium 134 mmol/L (136-145)
[2021-07-12 04:41] LABS: Band 14 % (5-11); Lymphocytes 6 % (21-51); MDiff Complete? YES; Mean Corpuscular HGB CONC 33.1 g/dL (32.0-36.0); Mean Corpuscular Hemoglobin 27.5 pg (27.0-31.0); Mean Corpuscular Volume 83.1 fL (78.0-98.0); Mean Platelet Volume 9.1 fL (7.4-10.4); Monocytes 3 % (0-10); Neutrophil 77 % (42-75); Platelet Count 146 thou/uL (130-400); RBC Distribution Width 14.6 % (11.5-14.5); Red Blood Cell (RBC) Count 3.64 mill/uL (4.20-5.40); White Blood Cell (WBC) Count 8.8 thou/uL (4.8-10.8)
[2021-07-12] MEDS: Amiodarone 450 MG, Admixture Fee 1 EACH in Dextrose 5% in Water 250 ML IVPB SCH ×2 (05:35→13:29)
[2021-07-12] MEDS: Diltiazem 125 MG in Sodium Chloride 0.9% 100 ML IVPB SCH ×2 (05:35→13:29)
[2021-07-12] MEDS ORDERED: LOKELMA 10 GM PACKET PO SCH (06:30)
[2021-07-12] MEDS: Aggrenox 200-25mg CAP PO SCH ×2 (07:09→20:02)
[2021-07-12] MEDS: Enoxaparin Sodium 30 MG/0.3 ML SYRINGE SC SCH (07:09)
[2021-07-12] MEDS: Pantoprazole 40 MG VIAL IVP SCH (07:09)
[2021-07-12] MEDS: Lorazepam 2 MG/ML VIAL SLOW IVP PRN ×3 (07:09→21:00)
[2021-07-12] MEDS: Primidone 50 MG TAB PO SCH (07:09)
[2021-07-12] MEDS: NIFEdipine XL 30 MG TAB PO SCH (07:10)
[2021-07-12] MEDS: Mometasone 200 MCG/Formoterol 5 MCG 120 PUFF INHALER INH SCH ×2 (07:17→18:02)
[2021-07-12 07:37] LABS: Actual Bicarbonate (HCO3a) 18.4 mEq/L (22-28); Calcium, Ionized (arterial) 0.97 mmol/L (1.12-1.30); Carboxyhemoglobin (COHb) 0.1 gm% (0.0-3.0); Hemoglobin (Hb) 9.9 g/dL (12.0-16.0); Potassium - ABG Lab 5.68 mmol/L (3.70-5.30); pH, Arterial 7.38 (7.35-7.45)
[2021-07-12 07:38] LABS: O2 Tension (PaO2), arterial 56.7 mmHg (> 70.0)
[2021-07-12 07:39] LABS: Puncture Site RBA
[2021-07-12] MEDS ORDERED: Polyethylene Glycol 3350 17 GM Packet PER TUBE SCH (09:15)
[2021-07-12] MEDS ORDERED: Senokot S 8.6-50 MG TAB PO SCH (09:15)
[2021-07-12] MEDS ORDERED: VANCOMYCIN 1.25 GM/250 ML BAG 1.25 GM in Premix Bag 1 BAG IVPB SCH (10:00)
[2021-07-12] MEDS ORDERED: Furosemide 100 MG/10 ML VIAL SLOW IVP SCH (10:15)
[2021-07-12] MEDS: Cefepime 2 GM in Sodium Chloride 0.9% 100 ML IVPB SCH (10:21)
[2021-07-12] MEDS: Senokot S 8.6-50 MG TAB PO SCH (10:22)
[2021-07-12] MEDS: metroNIDAZOLE 500 MG in Premix Bag 1 BAG IVPB SCH ×3 (10:45→21:25)
[2021-07-12 11:22] LABS: HBSAB Concentration Less than 8.00 mIU/mL; HBSAg Index 0.23 S/CO (0-0.99); Hep B Core Total Ab Non-Reactive (NonReactive); Hep B Core Total Index 0.04 S/CO (0-0.79); Hep B Surf AB Non-Reactive (NonReactive); Hep B Surf Ag Non-Reactive S/CO (NonReactive); Hep C IgG Ab Non-Reactive (NonReactive); Hep C Index 0.02 S/CO (0-0.79)
[2021-07-12 11:53] LABS: SARS-CoV-2 PCR by NAA Not Detected (NotDetected)
[2021-07-12] MEDS: Rosuvastatin 10 MG TAB PO SCH (20:02)
[2021-07-13] MEDS: metroNIDAZOLE 500 MG in Premix Bag 1 BAG IVPB SCH ×3 (04:59→20:27)
[2021-07-13 05:05] LABS: ALT (SGPT) 18 U/L (8-55); AST (SGOT) 31 U/L (5-34); Albumin 2.5 g/dL (3.4-4.8); Alkaline Phosphatase 236 U/L (40-110); Anion Gap 19 mmol/L (10-20); BUN (Urea Nitrogen) 97 mg/dL (9.8-20.1); Bilirubin, Total 0.3 mg/dL (0.2-1.2); Calc. Creatinine Clearance 24 mL/min (70-130); Calcium 7.4 mg/dL (7.8-10.44); Carbon Dioxide 22 mmol/L (23-31); Chloride 100 mmol/L (98-107); Glucose 117 mg/dL (83-110); Potassium 5.1 mmol/L (3.5-5.1); Protein, Total 4.5 g/dL (5.8-8.1); Sodium 136 mmol/L (136-145)
[2021-07-13 05:08] LABS: Phosphorus 8.8 mg/dL (2.3-4.7)
[2021-07-13 05:33] LABS: Band 6 % (5-11); Hemoglobin 9.3 g/dL (12.0-16.0); Lymphocytes 1 % (21-51); MDiff Complete? YES; Mean Corpuscular HGB CONC 33.6 g/dL (32.0-36.0); Mean Corpuscular Hemoglobin 28.4 pg (27.0-31.0); Mean Corpuscular Volume 84.3 fL (78.0-98.0); Mean Platelet Volume 9.7 fL (7.4-10.4); Neutrophil 93 % (42-75); Platelet Count 109 thou/uL (130-400); Platelet Morphology Comment Appears Decreased; RBC Distribution Width 14.6 % (11.5-14.5); Red Blood Cell (RBC) Count 3.29 mill/uL (4.20-5.40); White Blood Cell (WBC) Count 4.9 thou/uL (4.8-10.8)
[2021-07-13] MEDS: Mometasone 200 MCG/Formoterol 5 MCG 120 PUFF INHALER INH SCH ×2 (07:19→18:04)
[2021-07-13 07:57] LABS: Actual Bicarbonate (HCO3a) 20.7 mEq/L (22-28); CO2 Tension 35.8 mmHg (35.0-45.0); Calcium, Ionized (arterial) 0.96 mmol/L (1.12-1.30); Carboxyhemoglobin (COHb) 0.2 gm% (0.0-3.0); Hemoglobin (Hb) 9.5 g/dL (12.0-16.0); O2 Tension (PaO2), arterial 80.5 mmHg (> 70.0); Potassium - ABG Lab 4.73 mmol/L (3.70-5.30); pH, Arterial 7.38 (7.35-7.45)
[2021-07-13 07:59] LABS: Puncture Site LR
[2021-07-13] MEDS: Aggrenox 200-25mg CAP PO SCH ×2 (08:52→20:26)
[2021-07-13] MEDS: NIFEdipine XL 30 MG TAB PO SCH (08:52)
[2021-07-13] MEDS: Polyethylene Glycol 3350 17 GM Packet PER TUBE SCH (08:52)
[2021-07-13] MEDS: Primidone 50 MG TAB PO SCH (08:52)
[2021-07-13] MEDS: Enoxaparin Sodium 30 MG/0.3 ML SYRINGE SC SCH (08:53)
[2021-07-13] MEDS: Senokot S 8.6-50 MG TAB PO SCH ×2 (08:53→20:26)
[2021-07-13] MEDS: Pantoprazole 40 MG VIAL IVP SCH (08:53)
[2021-07-13] MEDS ORDERED: Heparin 10,000 UNITS/ 10 ML VIAL ONE (09:30)
[2021-07-13] MEDS ORDERED: Vancomycin 1 GM in Premix Bag 1 BAG IVPB SCH ×2 (09:45→14:45)
[2021-07-13] MEDS ORDERED: Vancomycin Sliding Scale 1 EACH FS ONE (09:45)
[2021-07-13] MEDS ORDERED: Vancomycin HCl 750 MG in Sodium Chloride 0.9% 250 ML 250 ML IVPB SCH (09:45)
[2021-07-13] MEDS ORDERED: HOLD VANCOMYCIN FOR LEVEL >20 FS SCH (09:45)
[2021-07-13] MEDS ORDERED: Vancomycin HCl 1.25 GM in Sodium Chloride 0.9% 250 ML 250 ML IVPB SCH (09:45)
[2021-07-13] MEDS ORDERED: Vancomycin HCl 500 MG in Sodium Chloride 0.9% 100 ML IVPB SCH (09:45)
[2021-07-13] MEDS ORDERED: VANCOMYCIN 1.25 GM/250 ML BAG 1.25 GM in Premix Bag 1 BAG IVPB SCH (10:00)
[2021-07-13] MEDS: Cefepime 2 GM in Sodium Chloride 0.9% 100 ML IVPB SCH (11:00)
[2021-07-13 11:34] LABS: Vancomycin, Random 6.5 ug/mL (See Comment)
[2021-07-13] MEDS: Rosuvastatin 10 MG TAB PO SCH (20:26)
[2021-07-14] MEDS: Diltiazem 125 MG in Sodium Chloride 0.9% 100 ML IVPB SCH ×2 (02:29→15:39)
[2021-07-14] MEDS: Amiodarone 450 MG, Admixture Fee 1 EACH in Dextrose 5% in Water 250 ML IVPB SCH ×2 (04:02→21:42)
[2021-07-14 04:33] LABS: #Lymphocytes 0.1 thou/uL (1.20-3.40); #Neutrophils 1.4 thou/uL (1.40-6.50); %Basophils 1.7 % (0.0-1.0); %Eosinophils 2.1 % (0.0-10.0); %Lymphocytes 6.7 % (21.0-51.0); %Monocytes 1.9 % (0.0-10.0); %Neutrophils 87.7 % (42.0-75.0); Hemoglobin 8.1 g/dL (12.0-16.0); Mean Corpuscular HGB CONC 31.6 g/dL (32.0-36.0); Mean Corpuscular Hemoglobin 26.7 pg (27.0-31.0); Mean Corpuscular Volume 84.4 fL (78.0-98.0); Mean Platelet Volume 9.2 fL (7.4-10.4); Platelet Count 87 thou/uL (130-400); RBC Distribution Width 14.4 % (11.5-14.5); Red Blood Cell (RBC) Count 3.04 mill/uL (4.20-5.40); White Blood Cell (WBC) Count 1.6 thou/uL (4.8-10.8)
[2021-07-14 04:55] LABS: ALT (SGPT) 13 U/L (8-55); AST (SGOT) 21 U/L (5-34); Albumin 2.3 g/dL (3.4-4.8); Alkaline Phosphatase 195 U/L (40-110); Anion Gap 17 mmol/L (10-20); BUN (Urea Nitrogen) 65 mg/dL (9.8-20.1); Bilirubin, Total 0.3 mg/dL (0.2-1.2); Calc. Creatinine Clearance 29 mL/min (70-130); Calcium 6.9 mg/dL (7.8-10.44); Carbon Dioxide 24 mmol/L (23-31); Chloride 100 mmol/L (98-107); Globulin 1.8 g/dL (2.4-3.5); Glucose 123 mg/dL (83-110); Magnesium 1.9 mg/dL (1.6-2.6); Phosphorus 6.5 mg/dL (2.3-4.7); Potassium 3.9 mmol/L (3.5-5.1); Protein, Total 4.1 g/dL (5.8-8.1); Sodium 137 mmol/L (136-145)
[2021-07-14] MEDS: Mometasone 200 MCG/Formoterol 5 MCG 120 PUFF INHALER INH SCH ×2 (06:50→18:09)
[2021-07-14 07:26] LABS: CO2 Tension 36.9 mmHg (35.0-45.0); Calcium, Ionized (arterial) 0.95 mmol/L (1.12-1.30); Carboxyhemoglobin (COHb) 0.3 gm% (0.0-3.0); Hemoglobin (Hb) 8.4 g/dL (12.0-16.0); O2 Tension (PaO2), arterial 64.6 mmHg (> 70.0); Potassium - ABG Lab 3.69 mmol/L (3.70-5.30); pH, Arterial 7.45 (7.35-7.45)
[2021-07-14 07:35] LABS: Puncture Site LBA
[2021-07-14 07:36] LABS: ALV-art Gradient 103.175 mmHg (0-20)
[2021-07-14] MEDS: metroNIDAZOLE 500 MG in Premix Bag 1 BAG IVPB SCH (07:47)
[2021-07-14] MEDS ORDERED: Enoxaparin Sodium 30 MG/0.3 ML SYRINGE SC SCH (09:00)
[2021-07-14] MEDS ORDERED: Enoxaparin Sodium 80 MG/0.8 ML SYRINGE SC SCH (09:00)
[2021-07-14] MEDS: Aggrenox 200-25mg CAP PO SCH ×2 (09:17→19:54)
[2021-07-14] MEDS: NIFEdipine XL 30 MG TAB PO SCH (09:17)
[2021-07-14] MEDS: Polyethylene Glycol 3350 17 GM Packet PER TUBE SCH (09:18)
[2021-07-14] MEDS: Senokot S 8.6-50 MG TAB PO SCH ×2 (09:18→19:54)
[2021-07-14 10:06] LABS: Vancomycin, Random 7.2 ug/mL (See Comment)
[2021-07-14] MEDS: Pantoprazole 40 MG VIAL IVP SCH (10:47)
[2021-07-14] MEDS: Primidone 50 MG TAB PO SCH (10:47)
[2021-07-14] MEDS ORDERED: cefTRIAXone\\ROCEPHIN 2 GM in Sodium Chloride 0.9% 100 ML IVPB SCH (12:00)
[2021-07-14] MEDS ORDERED: cefTRIAXone\\ROCEPHIN 1 GM in Sodium Chloride 0.9% 100 ML IVPB SCH (12:00)
[2021-07-14 13:55] VITALS: BMI 34.0
[2021-07-14] MEDS ORDERED: Fentanyl 100 MCG/2 ML VIAL ONE (15:21)
[2021-07-14] MEDS ORDERED: Fentanyl 100 MCG/2 ML VIAL SLOW IVP SCH (15:45)
[2021-07-14] MEDS ORDERED: Cefepime 0.5 GM in Admixture Fee 1 EACH IVPB SCH (16:00)
[2021-07-14 19:45] LABS: RBC Count-Automated (BF) 108825 /cu.mm; WBC/Nucleated-Auto (BF) 265 uL
[2021-07-14 19:46] LABS: Body Fluid Source Pleural Fluid; Pleural Fluid, Protein 2.4 g/dL; Tube # EDTA
[2021-07-14 19:47] LABS: BF Color Red; Clarity Cloudy/Turbid (Clear)
[2021-07-14] MEDS: Rosuvastatin 10 MG TAB PO SCH (19:54)
[2021-07-14 20:18] LABS: Fluid, pH - Pleural Fld Greater than 7.50 (7.60 - 7.66)
[2021-07-14 21:33] LABS: BF Segmented Neutrophils 23 %; Cell Count Non Hematic 5 %; Lymphocytes 72 %
[2021-07-15 04:33] LABS: Hemoglobin 7.9 g/dL (12.0-16.0); Mean Corpuscular HGB CONC 31.8 g/dL (32.0-36.0); Mean Corpuscular Hemoglobin 27.1 pg (27.0-31.0); Mean Corpuscular Volume 85.3 fL (78.0-98.0); Mean Platelet Volume 9.3 fL (7.4-10.4); Platelet Count 64 thou/uL (130-400); RBC Distribution Width 14.4 % (11.5-14.5); White Blood Cell (WBC) Count 0.3 thou/uL (4.8-10.8)
[2021-07-15 04:48] LABS: Platelet Morphology Comment Appears Decreased
[2021-07-15 04:52] LABS: ALT (SGPT) 13 U/L (8-55); AST (SGOT) 19 U/L (5-34); Albumin 2.2 g/dL (3.4-4.8); Alkaline Phosphatase 185 U/L (40-110); Anion Gap 18 mmol/L (10-20); BUN (Urea Nitrogen) 80 mg/dL (9.8-20.1); Bilirubin, Total 0.3 mg/dL (0.2-1.2); Calc. Creatinine Clearance 24 mL/min (70-130); Calcium 6.7 mg/dL (7.8-10.44); Carbon Dioxide 23 mmol/L (23-31); Chloride 100 mmol/L (98-107); Globulin 1.9 g/dL (2.4-3.5); Glucose 97 mg/dL (83-110); Magnesium 1.8 mg/dL (1.6-2.6); Phosphorus 7.4 mg/dL (2.3-4.7); Protein, Total 4.1 g/dL (5.8-8.1); Sodium 137 mmol/L (136-145)
[2021-07-15] MEDS: Mometasone 200 MCG/Formoterol 5 MCG 120 PUFF INHALER INH SCH (06:52)
[2021-07-15 06:57] VITALS: BP 136/51
[2021-07-15] MEDS: Polyethylene Glycol 3350 17 GM Packet PER TUBE SCH (09:00)
[2021-07-15] MEDS: Primidone 50 MG TAB PO SCH (09:00)
[2021-07-15] MEDS ORDERED: Pantoprazole 40 MG GRANULES PACKET PER TUBE SCH (09:00)
[2021-07-15] MEDS: NIFEdipine XL 30 MG TAB PO SCH (09:00)
[2021-07-15 10:27] VITALS: TEMP 99.1
[2021-07-15] MEDS: Senokot S 8.6-50 MG TAB PO SCH (10:38)
[2021-07-15] MEDS ORDERED: Morphine 4 MG/ML VIAL SLOW IVP PRN (11:03)
[2021-07-15] MEDS ORDERED: Lorazepam 2 MG/ML VIAL SLOW IVP PRN (11:06)
[2021-07-15] MEDS: Lorazepam 2 MG/ML VIAL SLOW IVP PRN (11:25)
[2021-07-15] MEDS ORDERED: Scopolamine 1.5 mg/72 hour Patch TD SCH (12:00)
== END 2021-07-15 12:30 | disposition hospice, inpatient (51) | DRG 207 ==
LOC: ERS 08:20 → 2NO 12:04 → CCU 07-08 11:46
PROVIDERS: ADMIT Family Medicine; ATTEND Family Medicine
PROC: 5A1955Z Respiratory Ventilation, Greater than 96 Consecutive Hours (ICD-10-PCS; principal; 2021-07-08)
PROC: 0BH18EZ Insertion of Endotracheal Airway into Trachea, Via Natural or Artificial Opening Endoscopic (ICD-10-PCS; 2021-07-08)
PROC: 06HY33Z Insertion of Infusion Device into Lower Vein, Percutaneous Approach (ICD-10-PCS; 2021-07-08)
PROC: 3E03305 Introduction of Other Antineoplastic into Peripheral Vein, Percutaneous Approach (ICD-10-PCS; 2021-07-08)
PROC: 0D9670Z Drainage of Stomach with Drainage Device, Via Natural or Artificial Opening (ICD-10-PCS; 2021-07-08)
PROC: 0B998ZZ Drainage of Lingula Bronchus, Via Natural or Artificial Opening Endoscopic (ICD-10-PCS; 2021-07-08)
PROC: 0B918ZZ Drainage of Trachea, Via Natural or Artificial Opening Endoscopic (ICD-10-PCS; 2021-07-08)
PROC: 5A2204Z Restoration of Cardiac Rhythm, Single (ICD-10-PCS; 2021-07-10)
PROC: 06HY33Z Insertion of Infusion Device into Lower Vein, Percutaneous Approach (ICD-10-PCS; 2021-07-12)
PROC: 5A1D70Z Performance of Urinary Filtration, Intermittent, Less than 6 Hours Per Day (ICD-10-PCS; 2021-07-12)
PROC: 0W993ZX Drainage of Right Pleural Cavity, Percutaneous Approach, Diagnostic (ICD-10-PCS; 2021-07-14)
DX: C34.11 Malignant neoplasm of upper lobe, right bronchus or lung (principal); I50.23 Acute on chronic systolic (congestive) heart failure; J96.21 Acute and chronic respiratory failure with hypoxia; J15.212 Pneumonia due to Methicillin resistant Staphylococcus aureus; D61.810 Antineoplastic chemotherapy induced pancytopenia; N17.9 Acute kidney failure, unspecified; I13.0 Hypertensive heart and chronic kidney disease with heart failure and stage 1 through stage 4 chronic kidney disease, or unspecified chronic kidney disease; J91.0 Malignant pleural effusion; C78.7 Secondary malignant neoplasm of liver and intrahepatic bile duct; N18.4 Chronic kidney disease, stage 4 (severe); E87.1 Hypo-osmolality and hyponatremia; E87.2 Acidosis; G93.49 Other encephalopathy; N39.0 Urinary tract infection, site not specified; J44.0 Chronic obstructive pulmonary disease with (acute) lower respiratory infection; Z66 Do not resuscitate; Z51.5 Encounter for palliative care; Z20.822 Contact with and (suspected) exposure to COVID-19; Z78.1 Physical restraint status; E66.01 Morbid (severe) obesity due to excess calories; D63.1 Anemia in chronic kidney disease; E78.5 Hyperlipidemia, unspecified; I48.0 Paroxysmal atrial fibrillation; E11.22 Type 2 diabetes mellitus with diabetic chronic kidney disease; I25.10 Atherosclerotic heart disease of native coronary artery without angina pectoris; E87.5 Hyperkalemia; T45.1X5A Adverse effect of antineoplastic and immunosuppressive drugs, initial encounter; B96.1 Klebsiella pneumoniae [K. pneumoniae] as the cause of diseases classified elsewhere; Z90.49 Acquired absence of other specified parts of digestive tract; Z98.890 Other specified postprocedural states; Z90.09 Acquired absence of other part of head and neck; Z87.891 Personal history of nicotine dependence; Z86.74 Personal history of sudden cardiac arrest; Z88.5 Allergy status to narcotic agent; Z79.82 Long term (current) use of aspirin; Z79.899 Other long term (current) drug therapy; Z98.51 Tubal ligation status; Z85.038 Personal history of other malignant neoplasm of large intestine; Z82.49 Family history of ischemic heart disease and other diseases of the circulatory system; Z80.42 Family history of malignant neoplasm of prostate; Z82.3 Family history of stroke; Z99.81 Dependence on supplemental oxygen; Z68.33 Body mass index [BMI] 33.0-33.9, adult; Z79.51 Long term (current) use of inhaled steroids; Z86.73 Personal history of transient ischemic attack (TIA), and cerebral infarction without residual deficits
CPT/HCPCS: 36415; 36416; 36600; 71045; 76705; 76770; 80053; 80202; 82150; 82553; 82570; 82805; 82945; 83615; 83690; 83735; 83880; 83986; 84100; 84145; 84157; 84478; 84484; 84540; 85025; 85060; 86704; 86706; 86803; 87040; 87070; 87077; 87086; 87116; 87149; 87186; 87205; 87206; 87340; 88112; 88305; 88341; 88342; 89051; 89220; 90935; 93005; 93010; 93306; 93970; 94002; 94003; 94640; 94760; C9113; G0257; J0282; J0692; J0696; J1100; J1160; J1642; J1644; J1650; J1940; J2060; J2250; J2270; J2469; J3010; J3370; J3490; J7030; J7050; J7070; J7120; J7509; J7620; J9045; J9181; P9047; Q5108; U0003; U0005

== ENCOUNTER 2021-07-15 12:24 | Inpatient (IN) | payer OTHER | END 2021-07-15 12:30 | disposition hospice, inpatient (51) | DRG 951 | LOC: CDU 12:24 | PROVIDERS: ADMIT Family Medicine; ATTEND Family Medicine | DX: Z51.5 Encounter for palliative care (principal); Z66 Do not resuscitate; I50.23 Acute on chronic systolic (congestive) heart failure; C34.90 Malignant neoplasm of unspecified part of unspecified bronchus or lung; N17.9 Acute kidney failure, unspecified; I13.0 Hypertensive heart and chronic kidney disease with heart failure and stage 1 through stage 4 chronic kidney disease, or unspecified chronic kidney disease; J44.9 Chronic obstructive pulmonary disease, unspecified; R74.8 Abnormal levels of other serum enzymes; D64.9 Anemia, unspecified; N18.9 Chronic kidney disease, unspecified; E66.01 Morbid (severe) obesity due to excess calories; I87.2 Venous insufficiency (chronic) (peripheral); Z99.81 Dependence on supplemental oxygen; Z88.6 Allergy status to analgesic agent; Z88.5 Allergy status to narcotic agent; Z79.899 Other long term (current) drug therapy; Z79.51 Long term (current) use of inhaled steroids; Z79.82 Long term (current) use of aspirin; Z85.038 Personal history of other malignant neoplasm of large intestine; Z86.73 Personal history of transient ischemic attack (TIA), and cerebral infarction without residual deficits; Z90.49 Acquired absence of other specified parts of digestive tract; Z87.891 Personal history of nicotine dependence ==